=== PATIENT | female | born 1985 | race African-American/Black ===

== ENCOUNTER 2020-04-29 19:30 | Emergency (ER) | payer OTHER ==
[~2020-04-29] VITALS: Ht 162.6 cm; Wt 59.0 kg
[~2020-04-29 19:30] MED LIST: MOTRIN800 MG PO; ORPH100T PO
== END 2020-04-29 23:52 | disposition home or self-care (01) ==
LOC: ER 19:30
DX: H81.10 Benign paroxysmal vertigo, unspecified ear (principal); Z03.818 Encounter for observation for suspected exposure to other biological agents ruled out

== ENCOUNTER 2020-09-25 11:21 | Emergency (ER) | payer OTHER ==
[~2020-09-25] VITALS: Ht 162.6 cm; Wt 54.4 kg
== END 2020-09-25 14:44 | disposition home or self-care (01) ==
LOC: ER 11:21
DX: S90.32XA Contusion of left foot, initial encounter (principal); W18.39XA Other fall on same level, initial encounter; Y93.89 Activity, other specified; Y92.098 Other place in other non-institutional residence as the place of occurrence of the external cause; Y99.8 Other external cause status

== ENCOUNTER 2021-01-30 12:11 | Emergency (ER) | payer OTHER ==
[~2021-01-30] VITALS: Ht 162.6 cm; Wt 61.2 kg
[2021-02-21] MEDS ORDERED: MAPAP22.4 MG/0. (15:29)
== END 2021-01-30 20:34 | disposition home or self-care (01) ==
LOC: ER 12:11
DX: N93.8 Other specified abnormal uterine and vaginal bleeding (principal)

== ENCOUNTER 2021-02-09 20:12 | Emergency (ER) | payer OTHER ==
[~2021-02-09] VITALS: Ht 162.6 cm; Wt 64.0 kg
[2021-02-09] MEDS ORDERED: PROTONIX20 MG PO (23:06)
[2021-02-09] MEDS ORDERED: PEPCID AC20 MG PO (23:06)
[2021-02-09] MEDS ORDERED: CARAFATE1 GM PO (23:06)
[2021-02-21] MEDS ORDERED: MAPAP22.4 MG/0. (15:29)
== END 2021-02-09 23:58 | disposition home or self-care (01) ==
LOC: ER 20:12
DX: K29.00 Acute gastritis without bleeding (principal)

== ENCOUNTER 2021-06-16 12:04 | Emergency (ER) | payer OTHER ==
[~2021-06-16] VITALS: Ht 162.6 cm; Wt 61.2 kg
[~2021-06-16 12:04] MED LIST changes: +CARAFATE1 GM PO; +MAPAP22.4 MG/0.; +PEPCID AC20 MG PO; +PROTONIX20 MG PO
== END 2021-06-16 15:43 | disposition home or self-care (01) ==
LOC: ER 12:04
DX: R05.9 Cough, unspecified (principal)

== ENCOUNTER 2021-10-01 18:31 | Emergency (ER) | payer OTHER ==
[~2021-10-01] VITALS: Ht 162.6 cm; Wt 65.8 kg
[2021-10-01] MEDS ORDERED: XOPENEX0.63 MG/3 IH (21:28)
[2021-10-01] MEDS ORDERED: MEDROLPACK PO (21:28)
[2021-10-01] MEDS ORDERED: TUSNEL LIQUID178 ML PO (21:28)
[2021-10-01] MEDS ORDERED: MONTELUKAST SOD10 MG PO (21:28)
== END 2021-10-01 21:45 | disposition home or self-care (01) ==
LOC: ER 18:31
DX: J45.909 Unspecified asthma, uncomplicated (principal)

== ENCOUNTER 2022-12-16 11:01 | Emergency (ER) | payer OTHER ==
[~2022-12-16] VITALS: Ht 165.1 cm; Wt 61.2 kg
[~2022-12-16 11:01] MED LIST changes: +MEDROLPACK PO; +MONTELUKAST SOD10 MG PO; +TUSNEL LIQUID178 ML PO; +XOPENEX0.63 MG/3 IH
== END 2022-12-16 14:27 | disposition home or self-care (01) ==
LOC: ER 11:01
DX: N94.5 Secondary dysmenorrhea (principal)

== ENCOUNTER 2024-12-30 20:00 | Emergency (ER) | payer OTHER ==
[~2024-12-30] VITALS: Ht 165.1 cm; Wt 68.0 kg
[2024-12-30 20:55] LABS: BASO % 0.2 % (0.1-1.2); EOS # 0.03 (0.04-0.54); EOS % 0.5 % (0.7-7.0); LYMPH # 0.72 (1.18-3.74); LYMPH % 12.6 % (19.3-53.1); MEAN PLATELET VOLUME 9.80 fl (9.4-12.4); MONO # 0.48 (0.24-0.82); MONO % 8.4 % (4.7-12.5); NEUT # 4.47 (1.56-6.13); NEUT % 78.1 % (34.0-71.1); RED CELL DISTRIBUTION WIDTH 12.2 % (11.6-14.4)
[2024-12-30 21:16] LABS: ALT/SGPT 21.0 U/L (12-78); AST/SGOT 20.0 U/L (15-37); BILIRUBIN TOTAL 0.19 mg/dL (0.3-1.2); BUN CREA RATIO 12.0 (7.0-25.0); COVID-19 AG POSITIVE (NEGATIVE); CREATININE SERUM 0.78 mg/dL (0.55-1.02); GFR 82.65; GLOBULINA 3.4 G/DL (2.4-3.5); GLUCOSE FASTING 155.0 mg/dL (65-100); OSMOLALITY SERUM 287.0 MOSM/KG (275-295)
[2024-12-30 21:47] LABS: URINE APPEARANCE Clear; URINE BILIRRUBIN Negative (NEGATIVE); URINE BLOOD Large; URINE COLOR Yellow; URINE GLUCOSE Negative (NEGATIVE); URINE KETONE Trace (NEGATIVE); URINE LEUKOCYTE Negative; URINE NITRATE Negative; URINE PROTEIN Negative (NEGATIVE); URINE UROBILINOGEN 0.2 E.U./dl
[2024-12-30 21:51] LABS: URINE BACTERIA 184.7 uL (0.0-1933); URINE EPITHELIAL CELLS 32.2 uL (0.0-38.8); URINE RBC 304.6 uL (0.0-20.8); URINE WBC 21.8 uL (0.0-23.2)
[2024-12-30 22:17] LABS: URINE CAST 0.29 uL (0.0-1.40); URINE CRYSTALS FEW /HPF
== END 2024-12-30 21:57 | disposition home or self-care (01) ==
LOC: ER 20:00
PROVIDERS: General Practice
DX: U07.1 COVID-19 (principal)